=== PATIENT | male | born 1990 | race Caucasian/White ===

== ENCOUNTER 2018-07-24 09:39 | Day surgery (SDC) | payer OTHER ==
[2018-07-20 11:11] VITALS: BMI 26.4
[2018-07-24] MEDS ORDERED: ONDANSETRON 4 MG/2 ML VIAL IVPUSH PRN (13:21)
[2018-07-24] MEDS ORDERED: LACTATED RINGERS SOLUTION 1,000 ML IV SCH (13:30)
[2018-07-24] MEDS ORDERED: POVIDONE-IODINE 5% OPHTHALMIC PREP 30 ML SOLUTION OS ONE (14:17)
[2018-07-24] MEDS ORDERED: BSS (NA/CA/MG/K) BALANCED SALT SOLUTION OPHTH SOLN 15 ML BOTTLE IO ONE (14:20)
[2018-07-24] MEDS ORDERED: LIDOCAINE 1%/EPI 1:100000 (50 ML MULTI DOSE VIAL) NR ONE (14:23)
[2018-07-24] MEDS ORDERED: NEO/POLYMYX B SULF/DEXAMETH OPHTHALMIC OINTMENT 3.5 GM ONE (14:46)
[2018-07-24] MEDS ORDERED: NEO/POLYMYX B SULF/DEXAMETH OPHTHALMIC OINTMENT 3.5 GM OS ONE (14:47)
[2018-07-24 15:47] VITALS: BP 118/71; PULSE 67; TEMP 98.5
--- NOTE | 2018-07-26 08:31 | OP ---
DATE OF OPERATION: 07/24/2018 SPECIALIST: Chelle Barraza MD PREOPERATIVE DIAGNOSIS: Pterygium, left eye. POSTOPERATIVE DIAGNOSIS: Pterygium, left eye. PROCEDURE: Pterygium excision, left eye with amniotic membrane graft using Tisseel glue. ANESTHESIA: Local. DESCRIPTION OF PROCEDURE: Patient was brought to the operating room. The left eye was prepped and draped in the usual sterile fashion for ophthalmic surgery. The microscope was swung into position. The size of the pterygium was then delineated using the surface marker, and in the belly of the pterygium was injected 0.5 mL of lidocaine with epinephrine. The head of the pterygium was then held with a 0.5 forceps and carefully excised using the crescent blade. The belly of the forceps was excised by the scissors, and the specimen was sent for histopathology. The surface of the cornea was then smoothened using the helen paula. The hemostasis was achieved with and epinephrine drops. The area was dried and measured by measured at 7 x 7 mm, and the same amniotic graft was cut and placed in position of the on the side using the Tisseel glue. After a minute of the graft being well held, the patient was asked to move his eyes left and right, and extraocular movements were found to be intact. Maxitrol was then placed on the conjunctiva sac, and the eye was patched. The patient was transferred to recovery room in a stable condition, having tolerated the procedure well. CHELLE BARRAZA M.D. [id number]
--- NOTE | 2018-07-26 11:08 | PATH ---
Surgical Pathology Report Patient Name: JACOB BLACK [facility]. Rec. #: [id number] /Age/Gender: 1990 (Age: 27) / M Account: [id number] Location: [facility] SURGICAL Taken: 07/24/2018 Received: 07/25/2018 Reported: 07/26/2018 Physicians: Yolette Herbert M.D. Specimen(s) Received LEFT EYE PTERYGIUM Clinical History Left eye pterygium Final Diagnosis EYE, LEFT, PTERYGIUM, EXCISION: CONSISTENT WITH PTERYGIUM. Electronically Signed Janet Evans M.D. Gross Description Received in formalin, labeled "left eye pterygium" are 2 mcnamara, irregular portions of soft tissue averaging 0.5 cm. in greatest dimension. The specimens are submitted in toto in one cassette. /07/25/2018 saudi07/25/2018
== END 2018-07-24 15:45 | disposition home or self-care (01) ==
LOC: JASU-SURG 09:39
PROVIDERS: ATTEND Ophthalmology
PROC: 08U107Z Supplement of Left Eye with Autologous Tissue Substitute, Open Approach (ICD-10-PCS; principal; 2018-07-24 12:00)
DX: H11.002 Unspecified pterygium of left eye (principal)
CPT/HCPCS: 88304-TC

== ENCOUNTER 2020-08-12 17:39 | Emergency (ER) | payer OTHER ==
[2020-08-12 17:52] VITALS: BP 126/63; PULSE 69; TEMP 98; BMI 29.5
[2020-08-31 10:18] LABS: WEIGHT 13 mg
[2020-08-31 10:19] LABS: CA OXALATE MONOHYDR. 40
[2020-08-31 10:20] LABS: CA OXALATE MONOHYDR. 10; WEIGHT 2 mg
== END 2020-08-12 18:09 | disposition home or self-care (01) ==
LOC: JER 17:39
DX: Z03.818 Encounter for observation for suspected exposure to other biological agents ruled out (principal)
CPT/HCPCS: 36415; 82360; 99283-25; C9803; U0003

== ENCOUNTER 2020-08-13 15:30 | Day surgery (SDC) | payer OTHER ==
[2020-08-13 15:51] VITALS: BMI 26.6
[2020-08-13] MEDS ORDERED: MIDAZOLAM HCL 2 MG/2 ML SINGLE DOSE VIAL ONE (17:12)
[2020-08-13] MEDS ORDERED: DEXAMETHASONE SOD PHOSPHATE 4 MG/1 ML VIAL ONE (17:41)
[2020-08-13] MEDS ORDERED: KETOROLAC TROMETHAMINE 30 MG/1 ML VIAL ONE (17:42)
[2020-08-13] MEDS ORDERED: oxyCODONE HCL 5 MG TABLET PO PRN (19:08)
[2020-08-13] MEDS ORDERED: PROMETHAZINE HCL 25 MG/1 ML VIAL IVPUSH PRN (19:08)
[2020-08-13] MEDS ORDERED: ONDANSETRON 4 MG/2 ML VIAL IVPUSH PRN (19:08)
[2020-08-13 19:56] VITALS: PULSE 60; TEMP 98
[2020-08-13 20:19] VITALS: BP 130/64
== END 2020-08-13 20:15 | disposition home or self-care (01) ==
LOC: JASU-SURG 15:30
PROVIDERS: ATTEND Urology
PROC: 0T788DZ Dilation of Bilateral Ureters with Intraluminal Device, Via Natural or Artificial Opening Endoscopic (ICD-10-PCS; 2020-08-13)
PROC: 0TC78ZZ Extirpation of Matter from Left Ureter, Via Natural or Artificial Opening Endoscopic (ICD-10-PCS; principal; 2020-08-13 17:30)
PROC: 0TC68ZZ Extirpation of Matter from Right Ureter, Via Natural or Artificial Opening Endoscopic (ICD-10-PCS; 2020-08-13 17:30)
DX: N20.1 Calculus of ureter (principal)
CPT/HCPCS: 76000-TC-FY; 88300-TC; 94760

== ENCOUNTER 2020-09-15 06:07 | Day surgery (SDC) | payer OTHER ==
[2020-09-12 12:21] VITALS: BMI 26.6
[2020-09-15] MEDS ORDERED: PROPOFOL 20 ML ONE (09:50)
[2020-09-15] MEDS ORDERED: MIDAZOLAM HCL 2 MG/2 ML SINGLE DOSE VIAL ONE (09:50)
[2020-09-15 13:17] VITALS: BP 120/70; PULSE 60; TEMP 98.2
== END 2020-09-15 13:05 | disposition home or self-care (01) ==
LOC: JASU-SURG 06:07
PROVIDERS: ATTEND Urology
PROC: 0TF3XZZ Fragmentation in Right Kidney Pelvis, External Approach (ICD-10-PCS; principal; 2020-09-15 09:30)
DX: N20.0 Calculus of kidney (principal)

== ENCOUNTER 2022-10-11 04:14 | Day surgery (SDC) | payer OTHER ==
[2022-10-07 10:44] VITALS: BMI 27.3
[2022-10-11] MEDS ORDERED: DEXAMETHASONE SOD PHOSPHATE 4 MG/1 ML VIAL ONE (10:43)
[2022-10-11] MEDS ORDERED: ONDANSETRON 4 MG/2 ML VIAL ONE (10:43)
[2022-10-11] MEDS ORDERED: MIDAZOLAM HCL 2 MG/2 ML SINGLE DOSE VIAL ONE ×2 (10:43→11:27)
[2022-10-11] MEDS ORDERED: KETOROLAC TROMETHAMINE 30 MG/1 ML VIAL ONE (10:49)
[2022-10-11] MEDS ORDERED: LIDOCAINE HCL/PF 2% SDV 5ML VIAL ONE (11:20)
[2022-10-11 12:49] VITALS: RESP 18
[2022-10-11 13:34] VITALS: BP 115/71; PULSE 72; TEMP 97.9
== END 2022-10-11 13:29 | disposition home or self-care (01) ==
LOC: JASU-SURG 04:14
PROVIDERS: ATTEND Urology
PROC: 0TF3XZZ Fragmentation in Right Kidney Pelvis, External Approach (ICD-10-PCS; principal; 2022-10-11 10:30)
DX: N20.0 Calculus of kidney (principal)
CPT/HCPCS: C9803-CS; U0003; U0005